=== PATIENT | male | born 1955 | race Caucasian/White ===

== ENCOUNTER 2020-06-11 07:14 | Outpatient (CLI) | payer MEDICARE, BC ==
[2020-06-11 16:56] LABS: ALBUMIN 4.2 g/dL (3.2-5.5); ALBUMIN/GLOBULIN RATIO 1.4 (1.0-2.2); BILIRUBIN,TOTAL 1.4 mg/dL (0.2-1.0); TOTAL PROTEIN 7.1 g/dL (6.7-8.2)
[2020-06-11 17:12] LABS: INR 3.7 (0.8-1.2); PT - PROTHROMBIN TIME 37.4 secs (9.9-12.6)
== END 2020-06-11 07:15 | disposition home or self-care (01) ==
LOC: LAB.S 07:14
PROVIDERS: ATTEND Family Medicine Sports Medicine
DX: I27.82 Chronic pulmonary embolism (principal); R79.89 Other specified abnormal findings of blood chemistry; R74.8 Abnormal levels of other serum enzymes
CPT/HCPCS: 36415; 80053; 85610

== ENCOUNTER 2020-06-18 07:07 | Outpatient (CLI) | payer MEDICARE, BC ==
[2020-06-18 15:34] LABS: PT - PROTHROMBIN TIME 30.8 secs (9.9-12.6)
== END 2020-06-18 07:08 | disposition home or self-care (01) ==
LOC: LAB.S 07:07
PROVIDERS: ATTEND Family Medicine Sports Medicine
DX: I27.82 Chronic pulmonary embolism (principal); D68.61 Antiphospholipid syndrome; Z51.81 Encounter for therapeutic drug level monitoring; Z79.01 Long term (current) use of anticoagulants
CPT/HCPCS: 36415; 85610

== ENCOUNTER 2020-06-25 07:06 | Outpatient (CLI) | payer MEDICARE, BC ==
[2020-06-25 16:16] LABS: PT - PROTHROMBIN TIME 30.9 secs (9.9-12.6)
== END 2020-06-25 07:07 | disposition home or self-care (01) ==
LOC: LAB.S 07:06
PROVIDERS: ATTEND Family Medicine Sports Medicine
DX: D68.61 Antiphospholipid syndrome (principal); Z51.81 Encounter for therapeutic drug level monitoring; Z79.01 Long term (current) use of anticoagulants
CPT/HCPCS: 36415; 85610

== ENCOUNTER 2020-07-09 07:15 | Outpatient (CLI) | payer MEDICARE, BC ==
[2020-07-09 15:09] LABS: INR 3.8 (0.8-1.2)
== END 2020-07-09 07:16 | disposition home or self-care (01) ==
LOC: LAB.S 07:15
PROVIDERS: ATTEND Family Medicine Sports Medicine
DX: D68.61 Antiphospholipid syndrome (principal); Z51.81 Encounter for therapeutic drug level monitoring; Z79.01 Long term (current) use of anticoagulants
CPT/HCPCS: 36415; 85610

== ENCOUNTER 2020-07-23 07:02 | Outpatient (CLI) | payer MEDICARE, BC ==
[2020-07-23 15:45] LABS: INR 2.8 (0.8-1.2); PT - PROTHROMBIN TIME 29.8 secs (9.9-12.6)
== END 2020-07-23 07:03 | disposition home or self-care (01) ==
LOC: LAB.S 07:02
PROVIDERS: ATTEND Family Medicine Sports Medicine
DX: D68.61 Antiphospholipid syndrome (principal); Z51.81 Encounter for therapeutic drug level monitoring; Z79.01 Long term (current) use of anticoagulants
CPT/HCPCS: 36415; 85610

== ENCOUNTER 2020-08-13 07:06 | Outpatient (CLI) | payer MEDICARE, BC ==
[2020-08-13 16:02] LABS: INR 2.5 (0.8-1.2); PT - PROTHROMBIN TIME 26.4 secs (9.9-12.6)
== END 2020-08-13 07:07 | disposition home or self-care (01) ==
LOC: LAB.S 07:06
PROVIDERS: ATTEND Family Medicine Sports Medicine
DX: D68.61 Antiphospholipid syndrome (principal); Z51.81 Encounter for therapeutic drug level monitoring; Z79.01 Long term (current) use of anticoagulants
CPT/HCPCS: 36415; 85610

== ENCOUNTER 2020-09-17 07:05 | Outpatient (CLI) | payer MEDICARE, BC ==
[2020-09-17 14:57] LABS: INR 3.5 (0.8-1.2); PT - PROTHROMBIN TIME 35.8 secs (9.9-12.6)
== END 2020-09-17 07:06 | disposition home or self-care (01) ==
LOC: LAB.S 07:05
PROVIDERS: ATTEND Family Medicine Sports Medicine
DX: D68.61 Antiphospholipid syndrome (principal); Z51.81 Encounter for therapeutic drug level monitoring; Z79.01 Long term (current) use of anticoagulants
CPT/HCPCS: 36415; 85610

== ENCOUNTER 2020-10-08 07:04 | Outpatient (CLI) | payer MEDICARE, BC ==
[2020-10-08 15:00] LABS: INR 3.2 (0.8-1.2); PT - PROTHROMBIN TIME 33.5 secs (9.9-12.6)
== END 2020-10-08 07:05 | disposition home or self-care (01) ==
LOC: LAB.S 07:04
PROVIDERS: ATTEND Family Medicine Sports Medicine
DX: D68.61 Antiphospholipid syndrome (principal); Z51.81 Encounter for therapeutic drug level monitoring; Z79.01 Long term (current) use of anticoagulants
CPT/HCPCS: 36415; 85610

== ENCOUNTER 2020-11-05 07:08 | Outpatient (CLI) | payer MEDICARE, BC ==
[2020-11-05 14:37] LABS: INR 2.4 (0.8-1.2); PT - PROTHROMBIN TIME 25.4 secs (9.9-12.6)
== END 2020-11-05 07:09 | disposition home or self-care (01) ==
LOC: LAB.S 07:08
PROVIDERS: ATTEND Family Medicine Sports Medicine
DX: D68.61 Antiphospholipid syndrome (principal); Z51.81 Encounter for therapeutic drug level monitoring; Z79.01 Long term (current) use of anticoagulants
CPT/HCPCS: 36415; 85610

== ENCOUNTER 2020-12-03 07:04 | Outpatient (CLI) | payer MEDICARE, BC ==
[2020-12-03 15:15] LABS: INR 2.4 (0.8-1.2); PT - PROTHROMBIN TIME 25.4 secs (9.9-12.6)
== END 2020-12-03 07:05 | disposition home or self-care (01) ==
LOC: LAB.S 07:04
PROVIDERS: ATTEND Family Medicine Sports Medicine
DX: D68.61 Antiphospholipid syndrome (principal); Z51.81 Encounter for therapeutic drug level monitoring; Z79.01 Long term (current) use of anticoagulants
CPT/HCPCS: 36415; 85610

== ENCOUNTER 2020-12-31 07:07 | Outpatient (CLI) | payer MEDICARE, BC ==
[2020-12-31 14:48] LABS: INR 2.6 (0.8-1.2); PT - PROTHROMBIN TIME 27.2 secs (9.9-12.6)
== END 2020-12-31 07:08 | disposition home or self-care (01) ==
LOC: LAB.S 07:07
PROVIDERS: ATTEND Family Medicine Sports Medicine
DX: D68.61 Antiphospholipid syndrome (principal); Z51.81 Encounter for therapeutic drug level monitoring; Z79.01 Long term (current) use of anticoagulants
CPT/HCPCS: 36415; 85610

== ENCOUNTER 2021-02-04 07:11 | Outpatient (CLI) | payer MEDICARE, BC ==
[2021-02-04 15:17] LABS: INR 2.6 (0.8-1.2); PT - PROTHROMBIN TIME 26.9 secs (9.9-12.6)
== END 2021-02-04 07:12 | disposition home or self-care (01) ==
LOC: LAB.S 07:11
PROVIDERS: ATTEND Family Medicine Sports Medicine
DX: D68.61 Antiphospholipid syndrome (principal); Z51.81 Encounter for therapeutic drug level monitoring; Z79.01 Long term (current) use of anticoagulants
CPT/HCPCS: 36415; 85610

== ENCOUNTER 2021-03-11 07:06 | Outpatient (CLI) | payer MEDICARE, BC ==
[2021-03-11 15:40] LABS: INR 2.5 (0.8-1.2); PT - PROTHROMBIN TIME 28.1 secs (9.9-12.6)
== END 2021-03-11 07:07 | disposition home or self-care (01) ==
LOC: LAB.S 07:06
PROVIDERS: ATTEND Family Medicine Sports Medicine
DX: Z51.81 Encounter for therapeutic drug level monitoring (principal); D68.61 Antiphospholipid syndrome; Z79.01 Long term (current) use of anticoagulants
CPT/HCPCS: 36415; 85610

== ENCOUNTER 2021-03-31 15:59 | Emergency (ER) | payer MEDICARE, BC ==
--- NOTE | 2021-03-31 16:19 | ED Physician Documentation ---
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 Usually normal INR. Treated recently for prostatitis with DOxycycline and started abx 5 days ago. Told to have INR checked to ensure not affecting it too badly. INR today in [place] was 9.8. He was called and told to come to ER for recheck and to get Vitamin K. He is having hematuria. Review of Systems Constitutional: denies: Fever, Chills Nose: denies: Rhinorrhea / runny nose, Congestion, Epistaxis Throat: denies: Sore throat Respiratory: denies: Cough GI: denies: Hematemesis, Bloody / black stool : reports: Hematuria (which is why he was started on the DOxycycline, and had urology appt this coming week.) Skin: denies: Rash, Lesions PD PAST MEDICAL HISTORY - Past Medical History Cardiovascular: Hypertension, Pulmonary embolism Respiratory: None Neuro: None Endocrine/Autoimmune: None - Present Medications Home Medications: Ambulatory Orders Medication Instructions Recorded Confirmed Atorvastatin Calcium 40 mg PO DAILY PM 03/31/21 03/31/21 Doxycycline Hyclate 100 mg PO BID 03/31/21 03/31/21 Dutasteride 0.5 mg PO DAILY 03/31/21 03/31/21 Metoprolol Succinate [Toprol Xl] 25 mg PO DAILY 03/31/21 03/31/21 Warfarin [Coumadin] 2.5 mg PO DAILY 03/31/21 03/31/21 Warfarin [Coumadin] 5 mg PO DAILY 03/31/21 03/31/21 - Allergies Allergies/Adverse Reactions: Allergies Allergy/AdvReac Type Severity Reaction Status Date / Time gentamicin Allergy Unknown Verified 03/31/21 16:08 loratadine [From Claritin] Allergy Rash Verified 03/31/21 16:08 Sulfa (Sulfonamide Allergy Unknown Verified 03/31/21 16:08 Antibiotics) PD ED PE NORMAL - Vitals Vital signs reviewed: Yes - General General: Alert and oriented X 3, No acute distress, Well developed/nourished - Abdomen Abdomen: Soft, Non tender - Derm Derm: Warm and dry. No: Normal color (mild pale) Results - Vitals Vitals: Oxygen O2 Source Room air - Labs Labs: Laboratory Tests 03/31/21 03/31/21 16:18 17:53 PT TNP INR (Fingerstick) > 8.0 H* INR TNP PD MEDICAL DECISION MAKING - ED course Complexity details: reviewed results (INR was above lab scale (so greater than 10) on both Whole Blood INR and lab testing. ), considered differential (Per [facility], patient given 5 mg vitamin K due to INR 5-10 without life-threatening bleeding. ), d/w patient Departure - Departure Disposition: Home, Self Care Clinical Impression: Supratherapeutic INR, Anticoagulant long-term use Hematuria Qualifiers: Hematuria type: gross Qualified Code(s): R31.0 - Gross hematuria Condition: Stable Record reviewed to determine appropriate education?: Yes Follow-Up: SASHA FOX MD [Primary Care Provider] - Comments: I would hold your doxycycline dose tonight. Hold your Coumadin dose for tonight and likely tomorrow. Recheck your INR on Thursday. Being contact with your anticoagulation clinic as well. Follow-up with urology as planned this coming week. Discharge Date/Time: 03/31/21 18:00
[2021-03-31] MEDS ORDERED: CHERRY SYRUP 10 ML UDC PO ONE (16:53)
[2021-03-31] MEDS ORDERED: PHYTONADIONE 10 MG/ML AMP PO ONE (16:53)
[2021-03-31 18:14] VITALS: BP 144/92
== END 2021-03-31 18:00 | disposition home or self-care (01) ==
LOC: ED 15:59
DX: R79.1 Abnormal coagulation profile (principal); R31.0 Gross hematuria; Z79.01 Long term (current) use of anticoagulants
CPT/HCPCS: 36415; 85610; 99283; A9270

== ENCOUNTER 2021-04-01 07:05 | Outpatient (CLI) | payer MEDICARE, BC ==
[2021-04-01 15:49] LABS: INR 2.2 (0.8-1.2); PT - PROTHROMBIN TIME 24.3 secs (9.9-12.6)
== END 2021-04-01 07:06 | disposition home or self-care (01) ==
LOC: LAB.S 07:05
PROVIDERS: ATTEND Family Medicine Sports Medicine
DX: D68.61 Antiphospholipid syndrome (principal); Z51.81 Encounter for therapeutic drug level monitoring; Z79.01 Long term (current) use of anticoagulants
CPT/HCPCS: 36415; 85610

== ENCOUNTER 2021-04-02 06:59 | Outpatient (CLI) | payer MEDICARE, BC ==
[2021-04-02 15:35] LABS: INR 1.6 (0.8-1.2); PT - PROTHROMBIN TIME 17.5 secs (9.9-12.6)
== END 2021-04-02 07:00 | disposition home or self-care (01) ==
LOC: LAB.S 06:59
PROVIDERS: ATTEND Family Medicine Sports Medicine
DX: D68.61 Antiphospholipid syndrome (principal); Z51.81 Encounter for therapeutic drug level monitoring; Z79.01 Long term (current) use of anticoagulants
CPT/HCPCS: 36415; 85610

== ENCOUNTER 2021-04-08 07:17 | Outpatient (CLI) | payer MEDICARE, BC ==
[2021-04-08 15:23] LABS: PT - PROTHROMBIN TIME 67.8 secs (9.9-12.6)
[2021-04-08 15:38] LABS: INR 6.1 (0.8-1.2)
== END 2021-04-08 07:18 | disposition home or self-care (01) ==
LOC: LAB.S 07:17
PROVIDERS: ATTEND Family Medicine Sports Medicine
DX: D68.61 Antiphospholipid syndrome (principal); Z51.81 Encounter for therapeutic drug level monitoring; Z79.01 Long term (current) use of anticoagulants
CPT/HCPCS: 36415; 85610

== ENCOUNTER 2021-04-10 07:04 | Outpatient (CLI) | payer MEDICARE, BC ==
[2021-04-10 15:14] LABS: INR 2.1 (0.8-1.2); PT - PROTHROMBIN TIME 23.6 secs (9.9-12.6)
== END 2021-04-10 07:05 | disposition home or self-care (01) ==
LOC: LAB.S 07:04
PROVIDERS: ATTEND Family Medicine Sports Medicine
DX: D68.61 Antiphospholipid syndrome (principal); Z51.81 Encounter for therapeutic drug level monitoring; Z79.01 Long term (current) use of anticoagulants
CPT/HCPCS: 36415; 36416; 85610

== ENCOUNTER 2021-04-16 07:11 | Outpatient (CLI) | payer MEDICARE, BC ==
[2021-04-16 15:03] LABS: INR 1.7 (0.8-1.2); PT - PROTHROMBIN TIME 18.6 secs (9.9-12.6)
[2021-04-16 15:13] LABS: ALBUMIN 3.5 g/dL (3.2-5.5); BILIRUBIN,DIRECT 0.2 mg/dL (0.1-0.5); BILIRUBIN,TOTAL 1.2 mg/dL (0.2-1.0); TOTAL PROTEIN 6.5 g/dL (6.7-8.2)
== END 2021-04-16 07:12 | disposition home or self-care (01) ==
LOC: LAB.S 07:11
PROVIDERS: ATTEND Family Medicine Sports Medicine
DX: D68.61 Antiphospholipid syndrome (principal); Z51.81 Encounter for therapeutic drug level monitoring; Z79.01 Long term (current) use of anticoagulants
CPT/HCPCS: 36415; 80076; 85610

== ENCOUNTER 2021-04-25 07:12 | Outpatient (CLI) | payer MEDICARE, BC ==
[2021-04-25 14:43] LABS: INR 3.7 (0.8-1.2); PT - PROTHROMBIN TIME 41.4 secs (9.9-12.6)
== END 2021-04-25 07:13 | disposition home or self-care (01) ==
LOC: LAB.S 07:12
PROVIDERS: ATTEND Family Medicine Sports Medicine
DX: D68.61 Antiphospholipid syndrome (principal); Z51.81 Encounter for therapeutic drug level monitoring; Z79.01 Long term (current) use of anticoagulants
CPT/HCPCS: 36415; 85610

== ENCOUNTER 2021-05-09 07:01 | Outpatient (CLI) | payer MEDICARE, BC ==
[2021-05-09 15:53] LABS: INR 2.2 (0.8-1.2); PT - PROTHROMBIN TIME 24.2 secs (9.9-12.6)
== END 2021-05-09 07:02 | disposition home or self-care (01) ==
LOC: LAB.S 07:01
PROVIDERS: ATTEND Family Medicine Sports Medicine
DX: D68.61 Antiphospholipid syndrome (principal); Z51.81 Encounter for therapeutic drug level monitoring; Z79.01 Long term (current) use of anticoagulants
CPT/HCPCS: 36415; 85610

== ENCOUNTER 2021-05-30 07:04 | Outpatient (CLI) | payer MEDICARE, BC ==
[2021-05-30 14:49] LABS: INR 2.9 (0.8-1.2); PT - PROTHROMBIN TIME 32.2 secs (9.9-12.6)
== END 2021-05-30 07:05 | disposition home or self-care (01) ==
LOC: LAB.S 07:04
PROVIDERS: ATTEND Family Medicine Sports Medicine
DX: D68.61 Antiphospholipid syndrome (principal); Z51.81 Encounter for therapeutic drug level monitoring; Z79.01 Long term (current) use of anticoagulants
CPT/HCPCS: 36415; 85610

== ENCOUNTER 2021-06-27 10:49 | Outpatient (CLI) | payer MEDICARE, BC ==
[2021-06-27 12:35] LABS: INR 2.4 (0.8-1.2); PT - PROTHROMBIN TIME 26.9 secs (9.9-12.6)
== END 2021-06-27 10:50 | disposition home or self-care (01) ==
LOC: LAB 10:49
PROVIDERS: ATTEND Family Medicine Sports Medicine
DX: D68.61 Antiphospholipid syndrome (principal); Z51.81 Encounter for therapeutic drug level monitoring; Z79.01 Long term (current) use of anticoagulants
CPT/HCPCS: 36415; 36416; 85610

== ENCOUNTER 2021-07-25 09:12 | Outpatient (CLI) | payer MEDICARE, BC ==
[2021-07-25 09:33] LABS: INR 2.7 (0.8-1.2); PT - PROTHROMBIN TIME 30.6 secs (9.9-12.6)
== END 2021-07-25 09:13 | disposition home or self-care (01) ==
LOC: LAB 09:12
PROVIDERS: ATTEND Family Medicine Sports Medicine
DX: D68.61 Antiphospholipid syndrome (principal); Z51.81 Encounter for therapeutic drug level monitoring; Z79.01 Long term (current) use of anticoagulants
CPT/HCPCS: 36415; 36416; 85610

== ENCOUNTER 2021-08-22 07:07 | Outpatient (CLI) | payer MEDICARE, BC ==
[2021-08-22 15:47] LABS: INR 1.9 (0.8-1.2); PT - PROTHROMBIN TIME 21.2 secs (9.9-12.6)
== END 2021-08-22 07:08 | disposition home or self-care (01) ==
LOC: LAB.S 07:07
PROVIDERS: ATTEND Family Medicine Sports Medicine
DX: D68.61 Antiphospholipid syndrome (principal); Z51.81 Encounter for therapeutic drug level monitoring; Z79.01 Long term (current) use of anticoagulants
CPT/HCPCS: 36415; 85610

== ENCOUNTER 2021-09-19 07:08 | Outpatient (CLI) | payer MEDICARE, BC ==
[2021-09-19 14:45] LABS: INR 2.4 (0.8-1.2); PT - PROTHROMBIN TIME 27.3 secs (9.9-12.6)
== END 2021-09-19 07:09 | disposition home or self-care (01) ==
LOC: LAB.S 07:08
PROVIDERS: ATTEND Family Medicine Sports Medicine
DX: D68.61 Antiphospholipid syndrome (principal); Z51.81 Encounter for therapeutic drug level monitoring; Z79.01 Long term (current) use of anticoagulants
CPT/HCPCS: 36415; 85610

== ENCOUNTER 2021-11-14 07:03 | Outpatient (CLI) | payer MEDICARE, BC ==
[2021-11-14 14:55] LABS: INR 2.5 (0.8-1.2); PT - PROTHROMBIN TIME 28.3 secs (9.9-12.6)
== END 2021-11-14 07:04 | disposition home or self-care (01) ==
LOC: LAB.S 07:03
PROVIDERS: ATTEND Family Medicine Sports Medicine
DX: D68.61 Antiphospholipid syndrome (principal); Z51.81 Encounter for therapeutic drug level monitoring; Z79.01 Long term (current) use of anticoagulants
CPT/HCPCS: 36415; 85610

== ENCOUNTER 2022-01-09 07:05 | Outpatient (CLI) | payer MEDICARE, BC ==
[2022-01-09 15:31] LABS: INR 2.8 (0.8-1.2); PT - PROTHROMBIN TIME 31.5 secs (9.9-12.6)
== END 2022-01-09 07:06 | disposition home or self-care (01) ==
LOC: LAB.S 07:05
PROVIDERS: ATTEND Family Medicine Sports Medicine
DX: D68.61 Antiphospholipid syndrome (principal); Z51.81 Encounter for therapeutic drug level monitoring; Z79.01 Long term (current) use of anticoagulants
CPT/HCPCS: 36415; 85610

== ENCOUNTER 2022-02-06 07:01 | Outpatient (CLI) | payer MEDICARE, BC ==
[2022-02-06 15:07] LABS: INR 2.6 (0.8-1.2); PT - PROTHROMBIN TIME 27.6 secs (9.9-12.6)
== END 2022-02-06 07:02 | disposition home or self-care (01) ==
LOC: LAB.S 07:01
PROVIDERS: ATTEND Family Medicine Sports Medicine
DX: D68.61 Antiphospholipid syndrome (principal); Z51.81 Encounter for therapeutic drug level monitoring; Z79.01 Long term (current) use of anticoagulants
CPT/HCPCS: 36415; 85610

== ENCOUNTER 2022-03-20 07:01 | Outpatient (CLI) | payer MEDICARE, BC ==
[2022-03-20 15:39] LABS: PT - PROTHROMBIN TIME 21.4 secs (9.9-12.6)
== END 2022-03-20 07:02 | disposition home or self-care (01) ==
LOC: LAB.S 07:01
PROVIDERS: ATTEND Family Medicine Sports Medicine
DX: D68.61 Antiphospholipid syndrome (principal); Z51.81 Encounter for therapeutic drug level monitoring; Z79.01 Long term (current) use of anticoagulants
CPT/HCPCS: 36415; 85610

== ENCOUNTER 2022-04-17 07:16 | Outpatient (CLI) | payer MEDICARE, BC ==
[2022-04-17 14:18] LABS: INR 2.8 (0.8-1.2)
== END 2022-04-17 07:17 | disposition home or self-care (01) ==
LOC: LAB.S 07:16
PROVIDERS: ATTEND Family Medicine Sports Medicine
DX: D68.61 Antiphospholipid syndrome (principal); Z51.81 Encounter for therapeutic drug level monitoring; Z79.01 Long term (current) use of anticoagulants
CPT/HCPCS: 36415; 85610

== ENCOUNTER 2022-05-15 07:02 | Outpatient (CLI) | payer MEDICARE, BC ==
[2022-05-15 14:50] LABS: INR 2.4 (0.8-1.2); PT - PROTHROMBIN TIME 25.5 secs (9.9-12.6)
== END 2022-05-15 07:03 | disposition home or self-care (01) ==
LOC: LAB.S 07:02
PROVIDERS: ATTEND Family Medicine Sports Medicine
DX: Z51.81 Encounter for therapeutic drug level monitoring (principal); D68.61 Antiphospholipid syndrome; Z79.01 Long term (current) use of anticoagulants
CPT/HCPCS: 36415; 85610

== ENCOUNTER 2022-06-19 07:04 | Outpatient (CLI) | payer MEDICARE, BC ==
[2022-06-19 14:55] LABS: INR 2.2 (0.8-1.2); PT - PROTHROMBIN TIME 23.8 secs (9.9-12.6)
== END 2022-06-19 07:05 | disposition home or self-care (01) ==
LOC: LAB.S 07:04
PROVIDERS: ATTEND Family Medicine Sports Medicine
DX: D68.61 Antiphospholipid syndrome (principal); Z51.81 Encounter for therapeutic drug level monitoring; Z79.01 Long term (current) use of anticoagulants
CPT/HCPCS: 36415; 85610

== ENCOUNTER 2022-07-24 07:09 | Outpatient (CLI) | payer MEDICARE, BC ==
[2022-07-24 14:27] LABS: INR 2.7 (0.8-1.2); PT - PROTHROMBIN TIME 28.6 secs (9.9-12.6)
== END 2022-07-24 07:10 | disposition home or self-care (01) ==
LOC: LAB.S 07:09
PROVIDERS: ATTEND Family Medicine Sports Medicine
DX: D68.61 Antiphospholipid syndrome (principal); Z51.81 Encounter for therapeutic drug level monitoring; Z79.01 Long term (current) use of anticoagulants
CPT/HCPCS: 36415; 85610

== ENCOUNTER 2022-08-28 07:36 | Outpatient (CLI) | payer MEDICARE, BC ==
[2022-08-28 08:07] LABS: INR 2.7 (0.8-1.2); PT - PROTHROMBIN TIME 28.5 secs (9.9-12.6)
== END 2022-08-28 07:37 | disposition home or self-care (01) ==
LOC: LAB 07:36
PROVIDERS: ATTEND Family Medicine Sports Medicine
DX: D68.61 Antiphospholipid syndrome (principal); Z51.81 Encounter for therapeutic drug level monitoring; Z79.01 Long term (current) use of anticoagulants
CPT/HCPCS: 36415; 85610

== ENCOUNTER 2022-10-02 07:02 | Outpatient (CLI) | payer MEDICARE, BC ==
[2022-10-02 15:01] LABS: INR 1.8 (0.8-1.2); PT - PROTHROMBIN TIME 19.9 secs (9.9-12.6)
== END 2022-10-02 07:03 | disposition home or self-care (01) ==
LOC: LAB.S 07:02
PROVIDERS: ATTEND Family Medicine Sports Medicine
DX: D68.61 Antiphospholipid syndrome (principal); Z51.81 Encounter for therapeutic drug level monitoring; Z79.01 Long term (current) use of anticoagulants
CPT/HCPCS: 36415; 85610

== ENCOUNTER 2022-10-23 07:04 | Outpatient (CLI) | payer MEDICARE, BC ==
[2022-10-23 15:00] LABS: PT - PROTHROMBIN TIME 21.8 secs (9.9-12.6)
== END 2022-10-23 07:05 | disposition home or self-care (01) ==
LOC: LAB.S 07:04
PROVIDERS: ATTEND Family Medicine Sports Medicine
DX: D68.61 Antiphospholipid syndrome (principal); Z51.81 Encounter for therapeutic drug level monitoring; Z79.01 Long term (current) use of anticoagulants
CPT/HCPCS: 36415; 85610

== ENCOUNTER 2022-11-13 07:03 | Outpatient (CLI) | payer MEDICARE, BC ==
[2022-11-13 14:34] LABS: INR 2.7 (0.8-1.2); PT - PROTHROMBIN TIME 28.8 secs (9.9-12.6)
== END 2022-11-13 07:04 | disposition home or self-care (01) ==
LOC: LAB.S 07:03
PROVIDERS: ATTEND Family Medicine Sports Medicine
DX: D68.61 Antiphospholipid syndrome (principal); Z51.81 Encounter for therapeutic drug level monitoring; Z79.01 Long term (current) use of anticoagulants
CPT/HCPCS: 36415; 85610

== ENCOUNTER 2022-12-24 07:00 | Outpatient (CLI) | payer MEDICARE, BC ==
[2022-12-24 14:31] LABS: PT - PROTHROMBIN TIME 41.6 secs (9.9-12.6)
== END 2022-12-24 23:59 | disposition home or self-care (01) ==
LOC: LAB.S 07:00
PROVIDERS: ATTEND Family Medicine Sports Medicine
DX: D68.61 Antiphospholipid syndrome (principal); Z51.81 Encounter for therapeutic drug level monitoring; Z79.01 Long term (current) use of anticoagulants
CPT/HCPCS: 36415; 85610

== ENCOUNTER 2023-01-05 07:01 | Outpatient (CLI) | payer MEDICARE, BC ==
[2023-01-05 15:18] LABS: INR 2.6 (0.8-1.2); PT - PROTHROMBIN TIME 26.3 secs (9.9-12.6)
== END 2023-01-05 07:02 | disposition home or self-care (01) ==
LOC: LAB.S 07:01
PROVIDERS: ATTEND Family Medicine Sports Medicine
DX: D68.61 Antiphospholipid syndrome (principal); Z51.81 Encounter for therapeutic drug level monitoring; Z79.01 Long term (current) use of anticoagulants
CPT/HCPCS: 36415; 85610

== ENCOUNTER 2023-02-09 07:03 | Outpatient (CLI) | payer MEDICARE, BC ==
[2023-02-09 08:35] LABS: INR 3.4 (0.8-1.2); PT - PROTHROMBIN TIME 34.9 secs (9.9-12.6)
== END 2023-02-09 07:04 | disposition home or self-care (01) ==
LOC: LAB.S 07:03 → LAB 07:04
PROVIDERS: ATTEND Family Medicine Sports Medicine
DX: D68.61 Antiphospholipid syndrome (principal); Z51.81 Encounter for therapeutic drug level monitoring; Z79.01 Long term (current) use of anticoagulants
CPT/HCPCS: 36415; 85610

== ENCOUNTER 2023-03-10 07:24 | Outpatient (CLI) | payer MEDICARE, BC ==
[2023-03-10 07:40] LABS: INR 3.2 (0.8-1.2); PT - PROTHROMBIN TIME 32.6 secs (9.9-12.6)
== END 2023-03-10 07:25 | disposition home or self-care (01) ==
LOC: LAB 07:24
PROVIDERS: ATTEND Family Medicine Sports Medicine
DX: D68.61 Antiphospholipid syndrome (principal); Z51.81 Encounter for therapeutic drug level monitoring; Z79.01 Long term (current) use of anticoagulants
CPT/HCPCS: 36415; 85610

== ENCOUNTER 2023-03-24 07:30 | Outpatient (CLI) | payer MEDICARE, BC ==
[2023-03-24 07:44] LABS: PT - PROTHROMBIN TIME 21.8 secs (9.9-12.6)
== END 2023-03-24 07:31 | disposition home or self-care (01) ==
LOC: LAB 07:30
PROVIDERS: ATTEND Family Medicine Sports Medicine
DX: D68.61 Antiphospholipid syndrome (principal); Z51.81 Encounter for therapeutic drug level monitoring; Z79.01 Long term (current) use of anticoagulants
CPT/HCPCS: 36415; 85610

== ENCOUNTER 2023-04-14 07:04 | Outpatient (CLI) | payer MEDICARE, BC ==
[2023-04-14 14:59] LABS: INR 3.2 (0.8-1.2)
== END 2023-04-14 07:05 | disposition home or self-care (01) ==
LOC: LAB.S 07:04
PROVIDERS: ATTEND Family Medicine Sports Medicine
DX: D68.61 Antiphospholipid syndrome (principal); Z51.81 Encounter for therapeutic drug level monitoring; Z79.01 Long term (current) use of anticoagulants
CPT/HCPCS: 36415; 36416; 85610

== ENCOUNTER 2023-05-12 07:02 | Outpatient (CLI) | payer MEDICARE, BC ==
[2023-05-12 16:19] LABS: INR 1.7 (0.8-1.2); PT - PROTHROMBIN TIME 17.8 secs (9.9-12.6)
== END 2023-05-12 07:03 | disposition home or self-care (01) ==
LOC: LAB.S 07:02
PROVIDERS: ATTEND Family Medicine Sports Medicine
DX: D68.61 Antiphospholipid syndrome (principal); Z51.81 Encounter for therapeutic drug level monitoring; Z79.01 Long term (current) use of anticoagulants
CPT/HCPCS: 36415; 85610

== ENCOUNTER 2023-05-26 07:10 | Outpatient (CLI) | payer MEDICARE, BC ==
[2023-05-26 14:54] LABS: INR 3.1 (0.8-1.2); PT - PROTHROMBIN TIME 32.3 secs (9.9-12.6)
== END 2023-05-26 07:11 | disposition home or self-care (01) ==
LOC: LAB.S 07:10
PROVIDERS: ATTEND Family Medicine Sports Medicine
DX: D68.61 Antiphospholipid syndrome (principal); Z51.81 Encounter for therapeutic drug level monitoring; Z79.01 Long term (current) use of anticoagulants
CPT/HCPCS: 36415; 85610

== ENCOUNTER 2023-06-15 07:01 | Outpatient (CLI) | payer MEDICARE, BC ==
[2023-06-15 14:40] LABS: INR 2.7 (0.8-1.2); PT - PROTHROMBIN TIME 28.7 secs (9.9-12.6)
== END 2023-06-15 07:02 | disposition home or self-care (01) ==
LOC: LAB.S 07:01
PROVIDERS: ATTEND Family Medicine Sports Medicine
DX: D68.61 Antiphospholipid syndrome (principal); Z51.81 Encounter for therapeutic drug level monitoring; Z79.01 Long term (current) use of anticoagulants
CPT/HCPCS: 36415; 85610

== ENCOUNTER 2023-07-15 07:03 | Outpatient (CLI) | payer MEDICARE, BC ==
[2023-07-15 15:13] LABS: INR 2.8 (0.8-1.2); PT - PROTHROMBIN TIME 28.9 secs (9.9-12.6)
== END 2023-07-15 07:04 | disposition home or self-care (01) ==
LOC: LAB.S 07:03
PROVIDERS: ATTEND Family Medicine Sports Medicine
DX: D68.61 Antiphospholipid syndrome (principal); Z51.81 Encounter for therapeutic drug level monitoring; Z79.01 Long term (current) use of anticoagulants
CPT/HCPCS: 36415; 85610

== ENCOUNTER 2023-08-12 11:36 | Outpatient (CLI) | payer MEDICARE, BC ==
[2023-08-12 11:52] LABS: INR 3.9 (0.8-1.2)
== END 2023-08-12 11:37 | disposition home or self-care (01) ==
LOC: LAB 11:36
PROVIDERS: ATTEND Family Medicine Sports Medicine
DX: D68.61 Antiphospholipid syndrome (principal); Z51.81 Encounter for therapeutic drug level monitoring; Z79.01 Long term (current) use of anticoagulants
CPT/HCPCS: 36415; 85610

== ENCOUNTER 2023-08-26 07:03 | Outpatient (CLI) | payer MEDICARE, BC ==
[2023-08-26 14:54] LABS: INR 2.1 (0.8-1.2); PT - PROTHROMBIN TIME 22.4 secs (9.9-12.6)
== END 2023-08-26 07:04 | disposition home or self-care (01) ==
LOC: LAB.S 07:03
PROVIDERS: ATTEND Family Medicine Sports Medicine
DX: D68.61 Antiphospholipid syndrome (principal); Z51.81 Encounter for therapeutic drug level monitoring; Z79.01 Long term (current) use of anticoagulants
CPT/HCPCS: 36415; 85610

== ENCOUNTER 2023-09-30 08:34 | Outpatient (CLI) | payer MEDICARE, BC ==
[2023-09-30 15:03] LABS: INR 3.1 (0.8-1.2); PT - PROTHROMBIN TIME 32.1 secs (9.9-12.6)
== END 2023-09-30 08:35 | disposition home or self-care (01) ==
LOC: LAB.S 08:34
PROVIDERS: ATTEND Family Medicine Sports Medicine
DX: D68.61 Antiphospholipid syndrome (principal); Z51.81 Encounter for therapeutic drug level monitoring; Z79.01 Long term (current) use of anticoagulants
CPT/HCPCS: 36415; 85610

== ENCOUNTER 2023-11-04 12:11 | Outpatient (CLI) | payer MEDICARE, BC ==
[2023-11-04 12:27] LABS: INR 3.2 (0.8-1.2); PT - PROTHROMBIN TIME 32.9 secs (9.9-12.6)
== END 2023-11-04 12:12 | disposition home or self-care (01) ==
LOC: LAB 12:11
PROVIDERS: ATTEND Family Medicine Sports Medicine
DX: D68.61 Antiphospholipid syndrome (principal); Z51.81 Encounter for therapeutic drug level monitoring; Z79.01 Long term (current) use of anticoagulants
CPT/HCPCS: 36415; 85610

== ENCOUNTER 2023-11-24 09:51 | Outpatient (CLI) | payer MEDICARE, BC ==
[2023-11-24 15:04] LABS: INR 2.5 (0.8-1.2); PT - PROTHROMBIN TIME 25.8 secs (9.9-12.6)
== END 2023-11-24 09:52 | disposition home or self-care (01) ==
LOC: LAB.S 09:51
PROVIDERS: ATTEND Family Medicine Sports Medicine
DX: Z51.81 Encounter for therapeutic drug level monitoring (principal); D68.61 Antiphospholipid syndrome; Z79.01 Long term (current) use of anticoagulants
CPT/HCPCS: 36415; 85610

== ENCOUNTER 2023-12-22 12:28 | Outpatient (CLI) | payer MEDICARE, BC ==
[2023-12-22 12:44] LABS: INR 2.3 (0.8-1.2); PT - PROTHROMBIN TIME 23.8 secs (9.9-12.6)
== END 2023-12-22 12:29 | disposition home or self-care (01) ==
LOC: LAB 12:28
PROVIDERS: ATTEND Family Medicine Sports Medicine
DX: D68.61 Antiphospholipid syndrome (principal); Z51.81 Encounter for therapeutic drug level monitoring; Z79.01 Long term (current) use of anticoagulants
CPT/HCPCS: 36415; 85610

== ENCOUNTER 2024-01-27 11:23 | Outpatient (CLI) | payer MEDICARE, BC ==
[2024-01-27 11:47] LABS: INR 2.6 (0.8-1.2); PT - PROTHROMBIN TIME 26.2 secs (9.9-12.6)
== END 2024-01-27 11:24 | disposition home or self-care (01) ==
LOC: LAB 11:23
PROVIDERS: ATTEND Family Medicine Sports Medicine
DX: D68.61 Antiphospholipid syndrome (principal); Z51.81 Encounter for therapeutic drug level monitoring; Z79.01 Long term (current) use of anticoagulants
CPT/HCPCS: 36415; 85610

== ENCOUNTER 2024-03-02 12:12 | Outpatient (CLI) | payer MEDICARE, BC ==
[2024-03-02 12:32] LABS: INR 4.2 (0.8-1.2)
== END 2024-03-02 12:13 | disposition home or self-care (01) ==
LOC: LAB 12:12
PROVIDERS: ATTEND Nurse Practitioner
DX: Z51.81 Encounter for therapeutic drug level monitoring (principal); D68.61 Antiphospholipid syndrome; Z79.01 Long term (current) use of anticoagulants
CPT/HCPCS: 36415; 85610